=== PATIENT | male | born 1975 | race Caucasian/White ===

== ENCOUNTER 2018-10-03 21:46 | Emergency (ER) | payer OTHER ==
[2018-10-03] MEDS ORDERED: Ondansetron PF 4 MG/2 ML Vial ONE (22:01)
[2018-10-03] MEDS ORDERED: Ketorolac Tromethamine 30 MG/ML VIAL ONE (22:01)
[2018-10-03] MEDS ORDERED: Dicyclomine 20 MG TAB ONE (22:03)
[2018-10-03 22:12] LABS: Bilirubin Negative (Negative); Blood, Urine Large (Negative); Clarity Cloudy (Clear); Glucose, Urine (Dipstick) Negative (Negative); Leukocyte Negative (Negative); Nitrite Negative (Negative); Protein, Urine (Dipstick) 30 mg/dL (Neg-Trace); Specific Gravity, Urine 1.025 (1.005-1.030); Urobilinogen 0.2 mg/dL (0.2-1.0)
[2018-10-03 22:18] LABS: Bacteria/HPF Rare-Few HPF (None Seen); Crystals/HPF 1+ AMORPH URATES HPF (Negative); Other Microscopic Description 1+ MUCUS; RBC/HPF 21-50 HPF (0-3); Squamous Epithelial 0-3 HPF (0-3); WBC/HPF 0-3 HPF (0-3)
== END 2018-10-03 22:51 | disposition home or self-care (01) ==
LOC: BURERS 21:46
DX: N20.1 Calculus of ureter (principal)
CPT/HCPCS: 81003; 81015; 96374; 96375; J0500; J1885; J2405